=== PATIENT | female | born 1980 | race Caucasian/White ===

== ENCOUNTER 2017-03-01 19:24 | Emergency (ER) | payer MEDICAID ==
[~2017-03-01] VITALS: Ht 162.6 cm; Wt 51.8 kg
[~2017-03-01 19:24] MED LIST: ANTI-INFLAMMATORY; LEVO50TA5 PO
[2017-03-01 19:25] VITALS: BP 103/61
[2017-03-01] MEDS ORDERED: HYDROcodone/APAP 5/325 TABLET PO ONE (19:47)
[2017-03-01] MEDS ORDERED: HYDROcodone/APAP 5/325 TABLET ONE (19:54)
[2017-03-01] MEDS ORDERED: LIDOCAINE 1%, 20ML ONE (20:20)
[2017-03-01] MEDS ORDERED: BUPIVACAINE 0.25% ONE (20:20)
== END 2017-03-01 21:00 | disposition home or self-care (01) ==
LOC: ED 20:15
DX: L03.011 Cellulitis of right finger (principal); M06.9 Rheumatoid arthritis, unspecified; J45.909 Unspecified asthma, uncomplicated; Z91.041 Radiographic dye allergy status
CPT/HCPCS: 10060; 26010

== ENCOUNTER 2017-07-14 13:03 | Emergency (ER) | payer MEDICAID ==
[~2017-07-14] VITALS: Ht 162.6 cm; Wt 52.1 kg
[2017-07-14 15:29] VITALS: BP 111/77
== END 2017-07-14 15:31 | disposition home or self-care (01) ==
LOC: ED 14:07
DX: J45.31 Mild persistent asthma with (acute) exacerbation (principal); J06.9 Acute upper respiratory infection, unspecified; E05.90 Thyrotoxicosis, unspecified without thyrotoxic crisis or storm; Z91.041 Radiographic dye allergy status
CPT/HCPCS: 71020; 93005; 99284; J7512

== ENCOUNTER 2017-12-23 17:07 | Emergency (ER) | payer MEDICAID ==
[~2017-12-23] VITALS: Ht 162.6 cm; Wt 48.8 kg
[2017-12-23 17:42] VITALS: BP 107/65
[2017-12-23 18:28] LABS: BASOPHILS # (AUTO) 0.01 x10^3/uL (0-0.1); BASOPHILS % (AUTO) 0 % (0-1); EOSINOPHILS # (AUTO) 0.06 x10^3/uL (0-0.4); EOSINOPHILS % (AUTO) 1 % (1-7); LYMPHOCYTES # (AUTO) 1.58 x10^3/uL (1-3.4); LYMPHOCYTES % (AUTO) 18 % (22-44); MD NO; MEAN CORPUSCULAR HEMOGLOBIN 30.9 pg (27.0-34.8); MEAN CORPUSCULAR HGB CONC 33.7 g/dL (32.4-35.8); MEAN CORPUSCULAR VOLUME 91.7 fL (80-100); MEAN PLATELET VOLUME 8.3 fL (7.4-10.4); MONOCYTES # (AUTO) 0.51 x10^3/uL (0.2-0.8); MONOCYTES % (AUTO) 6 % (2-9); NEUTROPHILS # (AUTO) 6.77 x10^3/uL (1.8-6.8); NEUTROPHILS % (AUTO) 76 % (42-75); PLATELET COUNT 169 x10^3/uL (130-400); RED BLOOD COUNT 4.44 x10^6/uL (3.82-5.3); RED CELL DISTRIBUTION WIDTH 13.6 % (9.6-15.2)
[2017-12-23 18:35] LABS: ALANINE AMINOTRANSFERASE 14 U/L (12-78); ALBUMIN 4.4 g/dL (3.4-5.0); ANION GAP 10 mmol/L (5-15); CALCIUM 8.8 mg/dL (8.5-10.1); CHLORIDE 107 mmol/L (98-107); CREATININE 0.69 mg/dL (0.55-1.02)
[2017-12-23 18:39] LABS: ALKALINE PHOSPHATASE 50 U/L (45-117); BILIRUBIN,TOTAL 0.5 mg/dL (0.2-1.0); TOTAL PROTEIN 7.7 g/dL (6.4-8.2)
[2017-12-23] MEDS ORDERED: BUSP15TA PO (19:58)
[2017-12-23 20:12] LABS: MICROSCOPIC NOT IND
[2017-12-23 20:15] LABS: CULTURE INDICATED? NO
== END 2017-12-23 22:10 | disposition home or self-care (01) ==
LOC: ED 21:09
DX: R10.11 Right upper quadrant pain (principal); R11.0 Nausea; J45.909 Unspecified asthma, uncomplicated; F43.10 Post-traumatic stress disorder, unspecified
CPT/HCPCS: 36415; 76700; 80053; 81003; 83690; 84703; 85025; 99285

== ENCOUNTER 2018-03-02 18:47 | Emergency (ER) | payer MEDICAID ==
[~2018-03-02] VITALS: Ht 162.6 cm; Wt 47.1 kg
[~2018-03-02 18:47] MED LIST changes: +BUSP15TA PO
[2018-03-02 18:56] VITALS: BP 107/73
[2018-03-02 19:41] LABS: BASOPHILS # (AUTO) 0.02 x10^3/uL (0-0.1); BASOPHILS % (AUTO) 0 % (0-1); EOSINOPHILS % (AUTO) 0 % (1-7); LYMPHOCYTES # (AUTO) 1.64 x10^3/uL (1-3.4); LYMPHOCYTES % (AUTO) 18 % (22-44); MD NO; MEAN CORPUSCULAR HEMOGLOBIN 30.6 pg (27.0-34.8); MEAN CORPUSCULAR HGB CONC 33.8 g/dL (32.4-35.8); MEAN CORPUSCULAR VOLUME 90.6 fL (80-100); MEAN PLATELET VOLUME 7.7 fL (7.4-10.4); MONOCYTES # (AUTO) 0.48 x10^3/uL (0.2-0.8); MONOCYTES % (AUTO) 5 % (2-9); NEUTROPHILS # (AUTO) 6.76 x10^3/uL (1.8-6.8); NEUTROPHILS % (AUTO) 76 % (42-75); PLATELET COUNT 209 x10^3/uL (130-400); RED BLOOD COUNT 4.51 x10^6/uL (3.82-5.3)
[2018-03-02 19:44] LABS: MICROSCOPIC NOT IND
[2018-03-02 19:50] LABS: ALANINE AMINOTRANSFERASE 22 U/L (12-78); ANION GAP 7 mmol/L (5-15); CALCIUM 8.1 mg/dL (8.5-10.1); CHLORIDE 105 mmol/L (98-107); CREATININE 0.87 mg/dL (0.55-1.02)
[2018-03-02 19:54] LABS: ALKALINE PHOSPHATASE 53 U/L (45-117); BILIRUBIN,TOTAL 0.3 mg/dL (0.2-1.0); TOTAL PROTEIN 7.6 g/dL (6.4-8.2)
[2018-03-02 19:55] LABS: CULTURE INDICATED? NO
== END 2018-03-02 21:17 | disposition home or self-care (01) ==
LOC: ED 20:27
DX: R53.1 Weakness (principal); R42 Dizziness and giddiness; R11.2 Nausea with vomiting, unspecified; R10.13 Epigastric pain; R10.11 Right upper quadrant pain; R30.0 Dysuria; R35.0 Frequency of micturition; M06.9 Rheumatoid arthritis, unspecified; E05.90 Thyrotoxicosis, unspecified without thyrotoxic crisis or storm; J45.909 Unspecified asthma, uncomplicated
CPT/HCPCS: 36415; 76700; 80053; 81003; 83690; 84703; 85025; 93005; 99285

== ENCOUNTER 2018-09-07 00:17 | Emergency (ER) | payer MEDICAID ==
[~2018-09-07] VITALS: Ht 162.6 cm; Wt 51.5 kg
[2018-09-07 00:39] LABS: HCG UR SG 1.025 (1.003-1.030); MICROSCOPIC NOT IND
[2018-09-07 00:41] LABS: CULTURE INDICATED? NO
[2018-09-07] MEDS ORDERED: ACETAMINOPHEN 500 MG TABLET ONE (01:06)
[2018-09-07] MEDS ORDERED: CEFTRIAXONE 250 MG ONE (01:30)
[2018-09-07] MEDS ORDERED: CEFTRIAXONE 1,000 MG IM ONE (01:30)
[2018-09-07 01:37] LABS: CLUE CELLS NONE SEEN (NONE SEEN); WET PREP WBCS FEW (FEW)
== END 2018-09-07 02:07 | disposition home or self-care (01) ==
LOC: ED 02:04
DX: N72 Inflammatory disease of cervix uteri (principal); F41.1 Generalized anxiety disorder; J45.909 Unspecified asthma, uncomplicated; M06.9 Rheumatoid arthritis, unspecified
CPT/HCPCS: 81003; 81025; 87210; 87491; 87591; 87808; 96372; 99284; J0696

== ENCOUNTER 2019-11-12 12:11 | Emergency (ER) | payer MEDICAID ==
[~2019-11-12] VITALS: Ht 162.6 cm; Wt 48.3 kg
--- NOTE | 2019-11-12 12:34 | NUR ---
39 Y/O FEMALE PRESENTS TO ED WITH C/O VB. PER PT "I STARTED BLEEDING ABOUT 24 HOURS AGO. I CAN'T EVEN LEAVE MY HOUSE BECAUSE I AM BLEEDING SO MUCH. I HAVE PAIN IN MY RIGHT OVARY AREA AND THERE IS A LUMP. I'VE HAD PAIN FOR TWO WEEKS AND I THOUGHT I WAS CONSTIPATED. I TOOK SOME LAXATIVES AND HAD A BM YESTERDAY. I TRIED CALLING MY DR, BUT THEY HAVEN'T CALLED ME BACK." PT PLACED ON CONT PULSE OX,NIBP. NADN. FAMILY BEDSIDE. NO C/O N/V/D, TRAUMA, SYNCOPE
[2019-11-12 12:37] LABS: BASOPHILS # (AUTO) 0.02 x10^3/uL (0-0.1); BASOPHILS % (AUTO) 0 % (0-1); EOSINOPHILS # (AUTO) 0.11 x10^3/uL (0-0.4); EOSINOPHILS % (AUTO) 2 % (1-7); LYMPHOCYTES # (AUTO) 1.24 x10^3/uL (1-3.4); LYMPHOCYTES % (AUTO) 18 % (22-44); MD NO; MEAN CORPUSCULAR HEMOGLOBIN 30.8 pg (27.0-34.8); MEAN CORPUSCULAR VOLUME 93.4 fL (80-100); MEAN PLATELET VOLUME 7.7 fL (7.4-10.4); MONOCYTES # (AUTO) 0.44 x10^3/uL (0.2-0.8); MONOCYTES % (AUTO) 6 % (2-9); NEUTROPHILS % (AUTO) 74 % (42-75); PLATELET COUNT 183 x10^3/uL (130-400); RED BLOOD COUNT 4.28 x10^6/uL (3.82-5.3); RED CELL DISTRIBUTION WIDTH 12.9 % (9.6-15.2)
--- NOTE | 2019-11-12 12:46 | NUR ---
EDMD JUST LEFT PT BEDSIDE.
[2019-11-12 12:50] LABS: ANION GAP 4 mmol/L (5-15); CALCIUM 7.7 mg/dL (8.5-10.1); CHLORIDE 109 mmol/L (98-107)
[2019-11-12 12:55] LABS: ALANINE AMINOTRANSFERASE 12 U/L (12-78); ALKALINE PHOSPHATASE 50 U/L (45-117); BILIRUBIN,TOTAL 0.6 mg/dL (0.2-1.0); CREATININE 0.71 mg/dL (0.55-1.02); TOTAL PROTEIN 7.1 g/dL (6.4-8.2)
--- NOTE | 2019-11-12 12:55 | NUR ---
TASK RN: BEDSIDE REPORT TO [facility]. JUST SPOKE TO PT AGAIN CONFIRMING ABDOMINAL PAIN SIDE. PT STATES "IT'S THE RIGHT SIDE" SHE POINTS TO THE LEFT. PT THEN CORRECTED HERSELF AND STATED "I MEAN IT'S ON THE LEFT SIDE." NIRAJ
--- NOTE | 2019-11-12 13:31 | NUR ---
MULTIPLE ATTEMPTS TO STRAIGHT CATH PT, UNABLE TO LOCATE URETHRA D/T ANATOMY. ERMD UPDATE, WILL SEND CLEAN CATCH
[2019-11-12 13:54] LABS: MICROSCOPIC AUTO
[2019-11-12 13:59] LABS: CULTURE INDICATED? NO
[2019-11-12 14:26] VITALS: BP 117/62
--- NOTE | 2019-11-12 14:26 | NUR ---
PT BACK FROM IMAGING AWAITING RESULTS AT THIS TIME. VSS, NO NEEDS AT THIS TIME
== END 2019-11-12 16:08 | disposition home or self-care (01) ==
LOC: ED 15:53
DX: N92.4 Excessive bleeding in the premenopausal period (principal); J45.909 Unspecified asthma, uncomplicated; E05.90 Thyrotoxicosis, unspecified without thyrotoxic crisis or storm; M06.9 Rheumatoid arthritis, unspecified
CPT/HCPCS: 36415; 76856; 80053; 81001; 84703; 85025; 99284